=== PATIENT | male | born 1940 | race Caucasian/White ===

== ENCOUNTER 2025-06-15 01:01 | Emergency (ER) | payer BC, MEDICAID ==
[~2025-06-15] VITALS: Ht 162.6 cm; Wt 64.0 kg
[2025-06-15 01:03] VITALS: O2SAT 98
[2025-06-15] MEDS: ONDANSETRON HCL 4MG/2ML INJ IV ONE (01:33)
[2025-06-15] MEDS: PANTOPRAZOLE SODIUM 40 MG/VIAL IV ONE (01:34)
[2025-06-15] MEDS: SODIUM CHLORIDE 0.9% 500 ML IV ONE (01:38)
[2025-06-15] MEDS: MORPHINE SULFATE 4 MG/ML INJ (FOR IV/IM USE) IV ONE (01:39)
[2025-06-15 02:05] LABS: INR 0.9
[2025-06-15 02:08] LABS: CREATININE 0.9 mg/dL (0.6-1.3)
[2025-06-15 02:09] LABS: ETHANOL BLOOD < 10 mg/dL (<10); PROTEIN TOTAL 6.9 g/dL (6.0-8.3); UREA NITROGEN BLOOD 11 mg/dL (9-23)
[2025-06-15 02:10] LABS: ASPARTATE AMINOTRANSFERASE 23 IU/L (<34)
[2025-06-15 02:11] LABS: BILIRUBIN DIRECT 0.2 mg/dL (<=3.0); BILIRUBIN TOTAL 0.5 mg/dL (0.1-1.0)
[2025-06-15] MEDS: MORPHINE SULFATE 2 MG/ML INJ (NOT FOR IM USE) IV ONE (03:10)
[2025-06-15 03:11] VITALS: BP 145/55; PULSE 57; RESP 12; TEMP 36.6; O2SAT 98
[2025-06-15 03:23] LABS: BASOPHILS % 0.4 % (0.0-2.0); EOSINOPHILS % 0.6 % (0.0-5.0); HEMATOCRIT. 39.5 % (42.0-52.0); HEMOGLOBIN. 13.3 g/dL (14.0-18.0); LYMPHOCYTES % 13.4 % (20.0-50.0); MEAN PLATELET VOLUME 9.5 fl (7.4-10.4); MONOCYTES % 2.0 % (2.0-8.0); NEUTROPHILS % 83.6 % (40.0-76.0); PLATELET 205 x1000/uL (130-400); RED BLOOD CELL COUNT 4.32 mill/uL (4.7-6.1); RED CELL DISTRIBUTION WIDTH 12.6 % (11.6-14.6)
[2025-06-15 03:48] LABS: CLARITY URINE CLOUDY (CLEAR); COLOR URINE YELLOW (YELLOW); GLUCOSE URINE NEGATIVE (NEGATIVE); KETONES URINE 1+ (NEGATIVE); LEUKOCYTE ESTERASE URINE NEGATIVE (NEGATIVE); NITRITE URINE NEGATIVE (NEGATIVE); OCCULT BLOOD URINE NEGATIVE (NEGATIVE); PH URINE >=9.0 (4.5-8.0); PROTEIN URINE 1+ (NEGATIVE); SPECIFIC GRAVITY URINE 1.020 (1.005-1.030); UROBILINOGEN URINE 0.2 E.U./dL (0.2-1.0)
[2025-06-15 04:06] LABS: *AMPHETAMINES SCREEN URINE NEGATIVE (NEGATIVE); *BARBITURATES SCREEN URINE NEGATIVE (NEGATIVE); *BENZODIAZEPINES SCREEN URINE NEGATIVE (NEGATIVE); *COCAINE SCREEN URINE NEGATIVE (NEGATIVE); METHADONE URINE SCREEN NEGATIVE (NEGATIVE); OPIATES URINE SCREEN PRESUMPTIVE POSITIVE (NEGATIVE)
[2025-06-15 04:07] LABS: CANNABINOID URINE SCREEN PRESUMPTIVE POSITIVE (NEGATIVE); ECSTASY MDMA SCREEN URINE NEGATIVE (NEGATIVE); PHENCYCLIDINE URINE SCREEN NEGATIVE (NEGATIVE)
[2025-06-15 04:16] LABS: BACTERIA URINE 2+; FINE GRANULAR CASTS URINE 0-5 /lpf; RBC URINE 0-2 /hpf (0-2); SQUAMOUS EPITHELIAL CELL URINE 1+ /lpf (RARE/1+); WBC URINE 0-2 /hpf (0-2)
[2025-06-15] MEDS ORDERED: TOPUD PO (05:36)
[2025-06-15] MEDS ORDERED: LOPE2CAP MT (05:36)
[2025-06-15] MEDS ORDERED: LACT1CAP78 MT (05:36)
[2025-06-15 05:46] LABS: INFLUENZA TYPE A Presumptive Negative (Pres. Neg.)
[2025-06-15 05:47] LABS: INFLUENZA TYPE B Presumptive Negative (Pres. Neg.)
== END 2025-06-15 05:58 | disposition home or self-care (01) ==
LOC: ER 01:01
DX: K52.9 Noninfective gastroenteritis and colitis, unspecified (principal); R10.84 Generalized abdominal pain; Z79.899 Other long term (current) drug therapy; Z20.822 Contact with and (suspected) exposure to COVID-19
CPT/HCPCS: 80076; 80305; 80048; 81003; 80320; 83690; 85025; 85610; 87804 ×2; 36415; 74176; 96374; 96375; 96376; 99285; 87426; J2405; J2470; J2270 ×2; J7040; A4606; G0480